=== PATIENT | female | born 1985 | race Caucasian/White ===

== ENCOUNTER 2019-02-09 15:49 | Emergency (ER) | payer MEDICAID ==
[~2019-02-09] VITALS: Wt 63.6 kg
[~2019-02-09 15:49] MED LIST: ACET325T33 PO
[2019-02-09 15:59] VITALS: BP 133/79; PULSE 111; RESP 20
[2019-02-09] MEDS ORDERED: LIDOCAINE 1% (MPF) 5 ML VIAL INFIL ONE (16:30)
[2019-02-09] MEDS ORDERED: ACETAMINOPHEN 500 MG TAB PO STA (17:06)
[2019-02-09] MEDS ORDERED: DIPHTH/TET/ACEL PERTUSS (ADULT) 0.5 ML VIAL IM* ONE (17:30)
== END 2019-02-09 17:17 | disposition home or self-care (01) ==
LOC: FTE 15:49
DX: O9A.211 Injury, poisoning and certain other consequences of external causes complicating pregnancy, first trimester (principal); S80.852A Superficial foreign body, left lower leg, initial encounter; W45.8XXA Other foreign body or object entering through skin, initial encounter; Y92.9 Unspecified place or not applicable; Z23 Encounter for immunization; Z3A.00 Weeks of gestation of pregnancy not specified
CPT/HCPCS: 10120; 90471; 90715; Z7502; Z7610